=== PATIENT | male | born 1935 | race Caucasian/White ===

== ENCOUNTER 2021-11-05 07:03 | Emergency (ER) | payer MEDICARE ==
[2021-11-05 07:16] VITALS: TEMP 99
[2021-11-05] MEDS ORDERED: ACETAMINOPHEN TAB 500 MG TAB PO STA (07:31)
--- NOTE | 2021-11-05 07:33 | ED ---
General Adult HPI - General Chief complaint: Upper Respiratory Infection Stated complaint: Fever Time Seen by Provider: 11/05/21 07:17 Source: patient, family, RN notes reviewed Mode of arrival: ambulatory Limitations: no limitations - History of Present Illness Initial comments: Patient is a pleasant 85-year-old male presenting to the emergency Department with not feeling well. Onset of symptoms was this morning. Patient feels fatigued. Patient was concerned he had a temperature however was unable to check it at home. Patient does have cough. No dyspnea. Patient does have some sinus congestion. - Related Data Home Medications Medication Instructions Recorded Confirmed Aspirin [[place]] 81 mg PO 11/05/21 Atorvastatin [Lipitor] 40 mg PO HS 11/05/21 11/05/21 Clopidogrel [Plavix] 75 mg PO DAILY 11/05/21 11/05/21 Cod Liver Oil 1 each PO 11/05/21 Cyanocobalamin (Vitamin B-12) 11/05/21 [Vitamin B-12] Pantoprazole [Protonix] 40 mg PO DAILY 11/05/21 11/05/21 Ubidecarenone [Co Q-10] 100 mg PO 11/05/21 Zinc 50 mg PO 11/05/21 amLODIPine BESYLATE 5 mg PO 11/05/21 Previous Rx's Medication Instructions Recorded Sulfamethox-Tmp 800-160Mg [Bactrim 1 each PO Q12HR #20 tab 11/05/21 DS 800-160 mg] Allergies Allergy/AdvReac Type Severity Reaction Status Date / Time No Known Allergies Allergy Verified 11/05/21 07:15 Review of Systems ROS Statement: Those systems with pertinent positive or pertinent negative responses have been documented in the HPI. ROS Other: All systems not noted in ROS Statement are negative. Constitutional: Reports: as per HPI, chills Eyes: Denies: eye pain ENT: Reports: congestion. Denies: ear pain Respiratory: Reports: cough. Denies: dyspnea Endocrine: Reports: fatigue Gastrointestinal: Denies: abdominal pain Genitourinary: Denies: dysuria, hematuria, discharge Musculoskeletal: Denies: back pain Skin: Denies: rash Neurological: Denies: weakness Past Medical History Past Medical History: GERD/Reflux, Hyperlipidemia, Hypertension Additional Past Medical History / Comment(s): stage4 kidney disease History of Any Multi-Drug Resistant Organisms: None Reported Additional Past Surgical History / Comment(s): aortic aneurysm repair Smoking Status: Never smoker Past Alcohol Use History: None Reported Past Drug Use History: None Reported General Exam Limitations: no limitations General appearance: alert, in no apparent distress Head exam: Present: normocephalic Eye exam: Present: normal appearance Neck exam: Present: normal inspection Respiratory exam: Present: normal lung sounds bilaterally Cardiovascular Exam: Present: regular rate, normal rhythm GI/Abdominal exam: Present: soft. Absent: tenderness Extremities exam: Present: normal inspection Neurological exam: Present: alert Psychiatric exam: Present: normal affect, normal mood Skin exam: Present: normal color Course Vital Signs 11/05/21 11/05/21 11/05/21 07:09 07:55 09:05 Temperature 99.0 F Pulse Rate 73 78 74 Respiratory 20 18 18 Rate Blood Pressure 183/79 144/81 152/87 O2 Sat by Pulse 96 95 96 Oximetry Medical Decision Making - Medical Decision Making Patient reevaluated and updated. - Lab Data Lab Results 11/05/21 11/05/21 11/05/21 Range/Units 07:48 07:48 09:06 Urine Color Yellow Urine Appearance Turbid (Clear) Urine pH 7.0 (5.0-8.0) Ur Specific [place] 1.019 (1.001-1.035) Urine Protein 2+ H (Negative) Urine Glucose (UA) Negative (Negative) Urine Ketones Negative (Negative) Urine Blood Moderate H (Negative) Urine Nitrite Negative (Negative) Urine Bilirubin Negative (Negative) Urine Urobilinogen <2.0 (<2.0) mg/dL Ur Leukocyte Esterase Large H (Negative) Urine RBC 17 H (0-5) /hpf Urine WBC >182 H (0-5) /hpf Urine WBC Clumps Many H (None) /hpf Urine Bacteria Moderate H (None) /hpf Urine Mucus Rare H (None) /hpf Coronavirus (PCR) Detected A (Not Detectd) Influenza Type A RNA Not Detected (Not Detectd) Influenza Type B (PCR) Not Detected (Not Detectd) - Radiology Data Radiology results: image reviewed (Chest x-ray shows no acute process) Disposition Clinical Impression: COVID-19, Urinary tract infection Disposition: HOME SELF-CARE Condition: Stable Instructions (If sedation given, give patient instructions): COVID-19 (Coronavirus Disease 2019) (ED), Urinary Tract Infection in Men (ED) Additional Instructions: Please do follow-up to primary care physician in the next day or 2 for recheck. Prescription for Paxlovid has been sent to [facility], please pick this up and start today. Antibiotic prescription written also. [id number] Ty lenol as needed. Continue vitamin C, vitamin D, and zinc. Return for difficulty breathing, not tolerating fluids, uncontrolled fevers, worsening symptoms or other concerns. Prescriptions: Sulfamethox-Tmp 800-160Mg [Bactrim DS 800-160 mg] 1 each PO Q12HR #20 tab Is patient prescribed a controlled substance at d/c from ED?: No Referrals: Wali Chaidez MD [STAFF PHYSICIAN] - 1-2 days Time of Disposition: 09:44
[2021-11-05 07:58] VITALS: RESP 18
--- NOTE | 2021-11-05 07:59 | XR ---
EXAMINATION TYPE: XR chest 2V DATE OF EXAM: 11/05/2021 COMPARISON: None INDICATION: Fever cough TECHNIQUE: Frontal and lateral views of the chest are obtained. FINDINGS: The heart size is normal. The pulmonary vasculature is normal. No suspicious infiltrates are evident. There is mild hyperinflation and flattened diaphragms compatib le with COPD. The aorta is ectatic.. IMPRESSION: 1. No acute pulmonary process. 2. COPD
[2021-11-05 09:37] LABS: Appearance,Urine Turbid (Clear); Bacteria,Urine Moderate /hpf; Bilirubin,Urine Negative (Negative); Blood,Urine Moderate (Negative); Color,Urine Yellow; Glucose,Urine (UA) Negative (Negative); Ketones,Urine Negative (Negative); Leukocyte Esterase,Urine Large (Negative); Mucus,Urine Rare /hpf; Nitrite,Urine Negative (Negative); Protein,Urine 2+ (Negative); RBC,Urine 17 /hpf (0-5); Specific Gravity,Urine 1.019 (1.001-1.035); Urobilinogen,Urine <2.0 mg/dL (<2.0); WBC,Urine >182 /hpf (0-5)
[2021-11-05 10:16] VITALS: BP 132/82; PULSE 68
== END 2021-11-05 10:16 | disposition home or self-care (01) ==
LOC: EC 07:03
DX: U07.1 COVID-19 (principal); E78.5 Hyperlipidemia, unspecified; I10 Essential (primary) hypertension
CPT/HCPCS: 71046; 81001; 87086; 87502; 87635